=== PATIENT | male | born 1970 | race Caucasian/White ===

== ENCOUNTER 2024-02-21 21:27 | Emergency (ER) | payer OTHER, SELFPAY ==
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
[2024-02-21 21:20] VITALS: BP 115/82; PULSE 93; RESP 22; TEMP 36.3; O2SAT 92
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
[2024-02-21 22:08] LABS: Abs Immature Grans 0.02 10^3/uL (0.0-0.06); Absolute Basophil Count 0.07 10^3/uL (0.0-0.2); Absolute Eosinophil Count 0.06 10^3/uL (0.0-0.7); Absolute Lymphocyte Count 2.81 10^3/uL (1.2-3.4); Absolute Monocyte Count 0.43 10^3/uL (0.1-0.8); Absolute Neutrophil Count 3.76 10^3/uL (1.2-6.7); Eosinophils % 0.8 %; HCT 49.1 % (40.0-50.0); HGB 16.5 g/dL (13.5-17.5); Immature Grans % 0.3 %; Lymphocytes % 39.3 %; MCH 31.4 pg (27.0-33.0); MCHC 33.6 % (32.0-36.0); MCV 93 fL (80-95); MPV 8.9 fL (8.0-11.0); Neutrophils % 52.6 %; Platelet Count 366 10^3/uL (130-400); RBC 5.26 10^6/uL (4.36-5.78); RDW 12.3 % (11.8-14.1); RDW-SD 42.3 fL; WBC 7.15 10^3/uL (4.4-10.8)
[2024-02-21] MEDS: MAGNESIUM SULFATE 8.12 MEQ, MULTIVITAMIN 10 ML, THIAMINE 100 MG, FOLIC ACID 1 MG in Nor... 168.867 MG IV (22:18)
[2024-02-21 22:31] LABS: ALT 74 U/L (16-63); AST 52 U/L (15-37); Albumin 4.1 g/dL (3.4-5.0); Alkaline Phosphatase 77 U/L (46-116); Amylase 63 U/L (25-115); Anion Gap 14.1 mmol/L (3-11); BUN 6 mg/dL (7-18); Bilirubin, Total 0.34 mg/dL (0.2-1.0); CO2 25.9 mmol/L (21.0-32.0); Calcium 8.5 mg/dL (8.5-10.1); Chloride 103 mmol/L (98-107); ETHANOL BLOOD 258.8 mg/dL (<10); Glucose 104 mg/dL (74-106); Lipase 58 U/L (16-77); Potassium 3.2 mmol/L (3.5-5.1); Sodium 143 mmol/L (136-145); Total Protein 8.2 g/dL (6.4-8.2)
[2024-02-21] MEDS: Potassium Chloride 20 MEQ TABCR 40 MEQ PO (22:51)
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
[2024-02-21 23:11] VITALS: BP 115/84; PULSE 98; RESP 22; O2SAT 93
== END 2024-02-21 23:11 ==
LOC: ER 23:25
PROVIDERS: Emergency Provider Physician Assistant
DX: Y90.8 Blood alcohol level of 240 mg/100 ml or more; Z04.1 Encounter for examination and observation following transport accident; F10.929 Alcohol use, unspecified with intoxication, unspecified
CPT/HCPCS: 80053; 83690; 96365; 99285; 70450; 72125; 80320; 82150; 83735; 85025; 99283; J3411; J3475